=== PATIENT | female | born 2000 | race Hispanic/Latino ===

== ENCOUNTER 2019-06-07 18:42 | Emergency (ER) | payer SELFPAY ==
[2019-06-07 21:03] LABS: APPEARANCE,URINE Cloudy (CLEAR); BILIRUBIN,URINE Negative (NEGATIVE); COLOR,URINE Dark Yellow (YELLOW); GLUCOSE, URINE (UA) Negative (NEGATIVE); KETONES,URINE Trace mg/dL (NEGATIVE); LEUKOCYTE ESTERASE ,URINE Negative (NEGATIVE); NITRATE,URINE Negative (NEGATIVE); OCCULT BLOOD,URINE Negative (NEGATIVE); PH,URINE 5.5 (5.0-8.0); PROTEIN,URINE POS 1+ mg/dL (NEGATIVE)
[2019-06-07 21:18] LABS: BACTERIA,URINE Few /HPF (None Seen); MUCUS,URINE Few LPF (None Seen); RBC,URINE 0-1 /HPF (0-1); SQUAMOUS EPITHELIAL CELL,UR Few /HPF (0-2); WBC,URINE 0-1 /HPF (0-1)
[2019-06-07 22:04] LABS: RAPID GROUP A STREP POSITIVE (NEGATIVE)
== END 2019-06-07 22:20 | disposition home or self-care (01) ==
LOC: EDH 18:42
DX: J02.9 Acute pharyngitis, unspecified (principal); R50.9 Fever, unspecified; J02.0 Streptococcal pharyngitis
CPT/HCPCS: 71046; 81001; 81025; 87804; 87880

== ENCOUNTER 2020-06-22 16:24 | Emergency (ER) | payer SELFPAY | END 2020-06-22 17:37 | disposition home or self-care (01) | LOC: EDH 16:24 | DX: L02.416 Cutaneous abscess of left lower limb (principal); Z87.891 Personal history of nicotine dependence | CPT/HCPCS: 87070; 87076; 87077; 87186 ==

== ENCOUNTER 2024-12-23 21:15 | Emergency (ER) | payer SELFPAY ==
[~2024-12-23] VITALS: Ht 157.5 cm; Wt 95.3 kg
--- NOTE | 2024-12-23 22:55 | ERN ---
ED Note History of Present Illness Stated Complaint: CP Chief Complaint: Chest Pain Time Seen by MD: 21:20 Dictation: A 24-year-old female presents to ER complaints of chest pain onset today about 4 hours ago. Patient states she just started feeling chest pain and bilateral arm numbness. 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 BACK: NEGATIVE FOR PAIN OR INJURY : NEGATIVE FOR INJURY, BLEEDING AND DISCHARGE MS/EXTREMITY: NEGATIVE FOR INJURY AND DEFORMITY SKIN: NEGATIVE FOR RASH, AND DISCOLORATION NEURO: NEGATIVE FOR HEADACHE, WEAKNESS, TINGLING, AND SEIZURE PSYCH: NEGATIVE FOR SUICIDE IDEATION, HOMICIDAL IDEATION, AND HALLUCINATIONS ALLERGY/IMMUNOLOGY: NEGATIVE FOR HIVES, RASH, AND ALLERGIES ALL SYSTEMS NEGATIVE, EXCEPT NOTED ABOVE. 13 POINT REVIEW OF SYSTEMS ASSESSED AND ALL NEGATIVE EXCEPT FOR ABOVE. Initial Vital Sign VS Vital Signs Date Time Temp Pulse Resp B/P (MAP) Pulse Ox O2 Delivery O2 Flow Rate FiO2 12/23/24 21:17 98.2 97 18 146/90 98 12/23/24 23:59 Room Air* 0 21 Physical Exam Dictation General: awake, alert, NAD Head/Face: Normocephalic, atraumatic Eyes: PERRL, EOMI, vision at baseline ENT: oral cavity clear, TMs clear, no signs of infection Neck: Trachea midline, supple, no nuchal rigidity Cardiovascular: RRR, normal no JVD Respiratory: CTAB, no respiratory distress, No rales or wheezes Abdomen: Soft, non-tender, non-distended, normal bowel sounds, no guarding or rebound. Skin: Warm, dry, normal turgor, no rash MS/Extremity: Pulses equal, no cyanosis, neurovascular intact, FROM Neuro: COAx4, GCS 15, strength 5/5, CN 2-12 intact, normal cerebellar exam, nor mal gait, Psych: Normal behavior, mood, and affect normal Results (Laboratory/Radiology) Laboratory/Radiology Laboratory Tests Test 12/23/24 23:10 Urine HCG, Qualitative NEGATIVE (NEGATIVE) ED Course ED Course Orders Procedure Category Date Status Time ,Urine Test LAB 12/23/24 Complete 21:35 12 Lead Ekg Tracing- EKG 12/23/24 Complete Technical 21:36 *Nursing CPOE 12/23/24 Transmitted Communication: 23:05 Hydroxyzine 25mg Tab PHA 12/24/24 Complete (Atarax 25mg Tab) 00:00 Current Medications Medications (Trade) Dose Ordered Sig/Nazia Route PRN Reason Start Time Stop Time Status Last Admin Dose Admin Hydroxyzine HCl (ATArax 25MG TAB) 25 mg ONCE ONCE PO 12/24/24 00:00 12/24/24 00:00 DC 12/23/24 23:51 Vital Signs Date Time Temp Pulse Resp B/P (MAP) Pulse Ox O2 Delivery O2 Flow Rate FiO2 12/23/24 23:59 98.1 88 16 136/84 99 Room Air* 0 21 12/23/24 21:17 98.2 97 18 146/90 98 Medical Decision Making MDM MDM: Differential diagnosis: ACS, stress, anxiety, costochondritis Rationale: Tests considered and ordered secondary to shared decision making include: labs, ECG and radiology Previous outside records reviewed: Old ER visits. Risk of complication and/or morbidity or mortality of patient management: None Medications-Per medication reconciliation Need for hospitalization: Patient does NOT meet criteria for hospitalization. Need for emergency major/minor surgery: No There are no social concerns with this patient. Prescription drug management Prescriptions will include symptomatic care Patient's prior external medical records from other ER visits were reviewed by me as indicated. Prior testing and results from previous visits were reviewed. Prior tests were taken into account with medical decision making and resource ut ilization, independent historian/historians were used to obtain complete medical history. I independently interpreted the test that were performed, results were reviewed by me and considered findings on radiology if ordered. Patient VSS, NAD, nontoxic, stable for discharge. Pt given discharge instructions in layman terms and understood, all questions answered. Pt will follow up with PCP and return to the ER if worse. DX & DISP Disposition: Discharge Departure Impression: Primary Impression: Anxiety Additional Impressions: Stress, Chest pain Condition: Stable Scripts Hydroxyzine HCl (Hydroxyzine HCl) 25 Mg Tablet 1 TAB PO BID for anxiety, #15 TAB 0 Refills Prov: KENJI TAYLOR NP 12/23/24 Referrals: SELF,REFERRAL (PCP) ATTESTATION BY PHYSICIAN I PERFORMED THE SUBSTANTIVE PORTION OF THE VISIT. I HAVE REVIEWED AND PERSONALLY MADE AND APPROVED THE MANAGEMENT PLAN THAT IS DOCUMENTED IN THE NOTE BY MYSELF FOR THE A PP. KENJI TAYLOR NP Dec 23, 2024 22:55 OTONIEL ROMERO MD Dec 24, 2024 19:26
[2024-12-23] MEDS ORDERED: HYDR-3421 PO (22:59)
[2024-12-23 23:59] VITALS: BP 136/84; PULSE 88; RESP 16; TEMP 98.1; O2SAT 99
--- NOTE | 2024-12-24 07:15 | EKG ---
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
== END 2024-12-24 | disposition home or self-care (01) ==
LOC: EDH 21:15
DX: F41.9 Anxiety disorder, unspecified (principal); F43.9 Reaction to severe stress, unspecified; R07.89 Other chest pain
CPT/HCPCS: 81025; 93005; 99284